=== PATIENT | female | born 1995 | race Caucasian/White ===

== ENCOUNTER 2018-08-12 09:44 | Emergency (ER) | payer OTHER ==
--- NOTE | 2018-08-12 11:02 | RAD ---
LEFT ELBOW: Date: 08/12/18 COMPARISON: None. HISTORY: Fall in shower, cut arm on wine glass. FINDINGS: Three views of the left elbow shows radiopaque foreign bodies along the posterior aspect of the elbow . No fracture or dislocation seen. A small elbow effusion is seen. IMPRESSION: 1. Radiopaque foreign bodies along the posterior aspect of the elbow. 2. Elbow effusion could be the sign of a radiographically occult fracture. Recommend repeat imaging in 4-6 weeks to evaluate for fracture healing. POS: [facility]
== END 2018-08-12 11:37 | disposition home or self-care (01) ==
LOC: ERS 09:44
DX: S51.022A Laceration with foreign body of left elbow, initial encounter (principal); F90.9 Attention-deficit hyperactivity disorder, unspecified type; G47.00 Insomnia, unspecified; F41.9 Anxiety disorder, unspecified; Z79.899 Other long term (current) drug therapy; W18.2XXA Fall in (into) shower or empty bathtub, initial encounter
CPT/HCPCS: 29125

== ENCOUNTER 2018-08-13 08:04 | Day surgery (SDC) | payer OTHER ==
[2018-08-12 17:32] VITALS: BMI 28.3
[2018-08-13] MEDS ORDERED: CEFAZOLIN 2 GM/50 ML BAG ONE (10:29)
[2018-08-13] MEDS ORDERED: Fentanyl 100 MCG/2 ML VIAL ONE (10:56)
[2018-08-13] MEDS ORDERED: Bupivacaine HCl 0.5%/Epinephrine 1:200,000/PF 30 ml Vial ONE (11:36)
--- NOTE | 2018-08-13 13:45 | OP ---
DATE OF OPERATION: 08/13/2018 OPERATION: Left elbow wound exploration with foreign body removal and triceps tendon repair. PREOPERATIVE DIAGNOSIS: Left elbow wound with foreign body, glass. POSTOPERATIVE DIAGNOSIS: Left elbow wound with glass foreign body and triceps tendon laceration. IMPLANTS: None. SURGEON: Brendan Drew M.D. ANESTHESIA: General plus local. INDICATIONS: Ms. King is a 23-year-old female who fell. She lacerated her left elbow with glass. She had retained foreign body and questionable triceps tendon laceration. We elected to explore th e wound and remove the glass and repair structures as needed. She elected to proceed. Primary risks involved infection or failure of healing of the triceps tendon. DESCRIPTION OF PROCEDURE: Ms. King was identified in the preoperative holding area. Her correct extremity was marked. She was carried to the operating room. She was positioned supine. General an esthesia was induced. A multidisciplinary timeout was performed. Left upper extremity was prepped a nd draped in sterile fashion. We began the procedure with exploration of the wound with extension of the traumatic laceration. We worked more proximally. We encountered multiple fragments of glass. Approximately 6 fragments were removed. We took an x-ray confirming all glass was removed. We cleaned the skin edges and debrided the wound with irrigation and sharply with a knife. We explored the triceps tendon. There was a com plete laceration of the triceps tendon transversely. We identified the triceps tendon edges. We the n proceeded to repair the triceps tendon with a #2 Ethibond suture. [id number] sutures were use d. We again irrigated and closed with 2-0 Vicryl suture followed by 3-0 nylon. A splint was placed. The patient was taken to the recovery room in good condition.
--- NOTE | 2018-08-13 14:53 | RAD ---
LEFT ELBOW ONE VIEW: History: 23-year-old female with history of foreign body removal left elbow. FINDINGS: The multiple previous opaque foreign bodies posterior to the distal humerus appear to have been remov ed without significant residual foreign body. IMPRESSION: Foreign body removal. No significant residual foreign body. POS: [facility]
[2018-08-13] MEDS ORDERED: Ondansetron PF 4 MG/2 ML Vial ONE (17:29)
[2018-08-13] MEDS ORDERED: Lidocaine 1% PF 5 ML VIAL ONE (17:29)
[2018-08-13] MEDS ORDERED: PROPOFOL 200 MG/20 ML VIAL ONE (17:29)
== END 2018-08-13 13:45 | disposition home or self-care (01) ==
LOC: SDC 08:04
PROVIDERS: ATTEND Orthopaedic Surgery
PROC: 0LQ40ZZ Repair Left Upper Arm Tendon, Open Approach (ICD-10-PCS; principal; 2018-08-13)
PROC: 0JCH0ZZ Extirpation of Matter from Left Lower Arm Subcutaneous Tissue and Fascia, Open Approach (ICD-10-PCS; principal; 2018-08-13)
DX: S46.322A Laceration of muscle, fascia and tendon of triceps, left arm, initial encounter (principal); S51.022A Laceration with foreign body of left elbow, initial encounter; Z79.899 Other long term (current) drug therapy; W45.8XXA Other foreign body or object entering through skin, initial encounter; W19.XXXA Unspecified fall, initial encounter
CPT/HCPCS: 76000; J0670; J2001; J2405; J2704; J3010